=== PATIENT | female | born 1980 | race Two or more races ===

== ENCOUNTER → 2025-05-13 | Outpatient (CLI) | payer MEDICAID, SELFPAY ==
--- NOTE | 2025-05-13 15:30 | XR_ITS ---
Examination: Screening digital mammography, bilateral Computer aided detection 3-D breast Tomosynthesis, bilateral Date and time of exam: May 13, 2025 1551 hours No priors Indication: Screening Technique: Nonmagnified MLO, CC views of the breasts to been obtained, reconstructed from 3-D Tomosynthesis images. R2 computer aided detection program utilized for evaluation of suspicious masses and/or abnormal calcifications. 3-D Tomosynthesis images obtained. Findings: The breasts are heterogeneously dense, which may obscure small masses 15 mm focal asymmetry inner lower right breast anterior depth Mildly prominent 10 mm right axillary lymph node Impression: BI-RADS Category 0: Incomplete: Need additional imaging evaluation Recommend follow-up spot tomographic views 15 mm focal asymmetry inner lower right breast as well as right breast sonography to complete the workup2
== END | disposition home or self-care (01) ==
LOC: CDIM 15:37
PROVIDERS: Referring Provider Physician Assistant; Visit Provider Physician Assistant
DX: Z12.31 Encounter for screening mammogram for malignant neoplasm of breast (principal); N64.89 Other specified disorders of breast
CPT/HCPCS: 77063; 77067

== ENCOUNTER → 2025-08-14 | Outpatient (CLI) | payer MEDICAID, SELFPAY ==
--- NOTE | 2025-08-14 13:45 | XR_ITS ---
Examination: Breast ultrasound, unilateral, right complete Date and time of exam: August 14, 2025, 1414 hours INDICATIONS: Mammogram May 13, 2025 15 mm focal asymmetry inner lower right breast anterior depth Technique: Real-time nagel scale ultrasonographic imaging performed right breast including all 4 quadrants as well as nipple retroareolar and axillary region. Findings: 12:00 cyst 12 x 10 mm 8:00 cyst 11 x 7 mm Retroareolar cyst 5 x 5 mm No solid nodules Smaller cysts IMPRESSION: BI-RADS Category 2: Benign findings
--- NOTE | 2025-08-14 14:15 | XR_ITS ---
Examination: Diagnostic digital mammography, unilateral, right Computer aided detection 3-D breast Tomosynthesis, unilateral Date and time of exam: August 14, 2025, 1428 hours INDICATIONS: 50 mm focal asymmetry inner lower right breast on mammogram May 13, 2025, 8.3 cm from the nipple on the cc view Technique: Nonmagnified MLO, CC views of the right breast have been obtained, reconstructed from 3-D Tomosynthesis images. R2 computer aided detection program utilized for evaluation of suspicious masses and/or abnormal calcifications. 3-D Tomosynthesis images obtained. Findings: The breast is heterogeneously dense, which may obscure small masses No suspicious nodule is noted on the spot compression views Impression: BI-RADS category 2: Benign findings Return to yearly follow-up mammography
== END | disposition home or self-care (01) ==
LOC: CDIM 13:57
PROVIDERS: PCP Physician Assistant; Referring Provider Physician Assistant; Visit Provider Physician Assistant
DX: R92.321 Mammographic fibroglandular density, right breast (principal)
CPT/HCPCS: 76641; 77061; 77065; G0279